=== PATIENT | female | born 1990 | race Two or more races ===

== ENCOUNTER 2017-04-01 21:53 | Emergency (ER) | payer SELFPAY ==
[~2017-04-01] VITALS: Ht 144.8 cm; Wt 59.0 kg
[2017-04-01 21:58] VITALS: BP 128/78
--- NOTE | 2017-04-01 22:08 | NUR ---
PT [facility], BOYFRIEND CALLED 911 FOR PT ETOH INTOXICATION. PT AMBULATORY W/ STEADY GAIT, WALKING AROUND ER ON HER CELLPHONE, UNABLE TO LIE STILL. RESP EVEN & UNLABORED, NAD NOTED. PT INSTRUCTED TO REMAIN IN ROOM AND WAIT FOR RASHARD MADRIGAL MD.
--- NOTE | 2017-04-01 22:23 | NUR ---
PT NOT IN ROOM. SEARCHED ER, BATHROOM, & LOBBY. PT HAM. NOTIFIED.
== END 2017-04-01 22:25 | disposition left against medical advice (07) ==
LOC: EDBD → ER 21:54
DX: Z53.21 Procedure and treatment not carried out due to patient leaving prior to being seen by health care provider (principal)
CPT/HCPCS: A4606; Z7610

== ENCOUNTER 2017-04-02 12:12 | Emergency (ER) | payer SELFPAY ==
[~2017-04-02] VITALS: Ht 160 cm; Wt 65.8 kg
[2017-04-02 12:48] VITALS: BP 126/75
--- NOTE | 2017-04-02 12:53 | NUR ---
ALERT/ORIENTED X 4, AMBULATING IN HW WITH STEADY GAIT, STS, SHE DOES NOT WANT TO BE SEEN ANYMORE, DR BERNAL NOTIFIED.
== END 2017-04-02 12:55 | disposition home or self-care (01) ==
LOC: ER 12:14
DX: Z53.21 Procedure and treatment not carried out due to patient leaving prior to being seen by health care provider (principal)
CPT/HCPCS: A4606; Z7610